=== PATIENT | female | born 1950 | race Caucasian/White ===

== ENCOUNTER 2016-06-07 21:25 | Emergency (ER) | payer OTHER ==
--- NOTE | ~2016-06-07 | CR63 ---
[facility] A Service of [facility] & [facility] RADIOLOGY TEXT RESULTS PATIENT: STEFANY BARR LOCATION: [facility] : 52 UNIT #: [id number] AGE: [address]: Polly Gray MD SEX: F ORDER DR: [id number] [facility] [address] [place], [place] [address] [id number] MR#: [id number] Acc #: [id number] NAME: STEFANY BARR : 1950 SEX: F STUDY DATE/TIME: 06/07/2016 18:16 UNIT: [facility] ROOM: STUDY DESCRIPTION: CR Chest 2 View Attending Physician: Polly Gray M.D. Ordering Physician: Ed Doctor [id number] [facility] Primary Care Physician: Kimi Cervantes M.D. MEDICAL IMAGING REPORT This report is preliminary unless electronic signature is present EXAM 2-view chest HISTORY Cough and congestion x4 days COMPARISON 06/07/2016 at 13:42 hours FINDINGS Portable view of the chest demonstrates no infiltrates or effusions. Heart size within normal limits. Middle mediastinal density consistent with a small hiatal hernia. No effusions. Overall no acute findings. Dictated by... Belinda Pastrana M.D. THIS IS AN ELECTRONICALLY VERIFIED REPORT Belinda Pastrana M.D. at 06/08/2016 10:05 AM RIKY/lolis TD: 06/08/2016 08:58 JOB #: [id number] MEDICAL IMAGING REPORT Page 1 of 1 COPY
--- NOTE | ~2016-06-07 | EKG ---
PATIENT: STEFANY BARR UNIT #: [id number] Ventricular Rate: 62 BPM Atrial Rate: 62 BPM P-R Interval: 130 ms QRS Duration: 84 ms Q-T Interval: 436 ms QTC Calculation(Bezet): 442 ms Calculated R [place]: 12 degrees Calculated T [place]: 24 degrees Diagnosis Line: Normal sinus rhythm Diagnosis Line: Minimal voltage criteria for LVH, may be normal Diagnosis Line: variant Diagnosis Line: Borderline ECG Baseline wander Diagnosis Line: When compared with ECG of 01-OCT-2014 00:46, Diagnosis Line: No significant change was found Diagnosis Line: Confirmed by ADRIEL LANCASTER MD ([id number]) on 06/08/2016 Diagnosis Line: 10:59:58 PM INTERPRETING MD: TONNY CARDONA
[2016-06-07 17:45] LABS: BASOPHIL% 0.5 % (0-2.5); EOSINOPHIL% 0.6 % (0.0-7.0); HEMATOCRIT 31.1 % (35.0-45.0); HEMOGLOBIN 9.4 gm/dL (12.0-16.0); LYMPHOCYTE% 37.8 % (17.0-45.0); MEAN CORPUSCULAR HEMOGLOBIN 19.3 PG (28-34); MEAN CORPUSCULAR HGB CONC 30.2 g/dL (30-36); MEAN PLATELET VOLUME 9.1 FL (6.5-11.5); MONOCYTE# 0.7 X10e3 (0-1.0); MONOCYTE% 12.3 % (3.0-12.0); NEUTROPHIL# 2.6 X10e3 (1.5-7.1); NEUTROPHIL% 48.8 % (40-75); PLATELET COUNT 148 X10e3 (140-420); RED BLOOD COUNT 4.87 X10e (3.90-5.30); RED CELL DISTRIBUTION WIDTH 16.8 % (11.0-15.5); WHITE BLOOD COUNT 5.3 X10e3 (4.0-10.5)
[2016-06-07 17:48] LABS: DIFF IND YES
[2016-06-07 18:09] LABS: ALBUMIN SERUM 3.3 g/dL (3.5-5.0); BILIRUBIN, DIRECT 0.1 mg/dL (0.0-0.2); BILIRUBIN,INDIRECT 0.4 mg/dL (0.0-0.9); BILIRUBIN,TOTAL 0.5 mg/dL (0.2-2.0); CALCIUM SERUM 8.3 mg/dL (8.4-10.2); CREATININE SERUM 0.5 mg/dL (0.6-1.4); GLOM FILT RATE Estimated 102.3 mL/min (>60); POTASSIUM 3.3 mmol/L (3.5-5.1); PROTEIN TOTAL SERUM 7.2 g/dL (6.0-8.3)
[2016-06-07 18:25] LABS: ELLIPTOCYTES PRESENT; PLATELET ESTIMATE NORMAL (NORMAL); POIKILOCYTOSIS SL
[2016-06-07 18:26] LABS: ANISOCYTOSIS SL; MICROCYTOSIS MOD; SPHEROCYTE SL
[2016-06-07 18:27] LABS: HYPOCHROMIA MOD
[~2016-06-07 21:25] MED LIST: ALBUTEROL17 GM INH; AMOXIL875 MG PO; CORTISPORI10 ML OTIC AU; DIET PILL; HCTZ PO; HUMULIN INSULIN SQ; HYDRALAZINE HCL25 MG PO; HYDROCHLOROTHIA25 MG PO; JANUVIA PO; JANUVIA25 MG PO; K-DUR20 ME1 PO; LANTUS100 UNITS/ SUBQ; MOBIC15 MG PO; NEXIUM PO; NOVOLOG100 U/ML; PHENERGAN DM1 ML PO; PREDNISONE PO; PROAIR HFA8.5 GM INH; SINGULAIR PO; VIBRAMYCIN100 M1 PO; ZOCOR PO; ZOFRAN ODT4 MG PO; ZYRTEC PO
[2016-06-07 21:47] LABS: INFLUENZA A NEG (NEG); INFLUENZA B POS (NEG)
== END 2016-06-07 23:24 | disposition home or self-care (01) ==
LOC: CED 21:25
PROVIDERS: Student in an Organized Health Care Education/Training Program
DX: J10.1 Influenza due to other identified influenza virus with other respiratory manifestations (principal); D64.9 Anemia, unspecified; E11.9 Type 2 diabetes mellitus without complications; J44.9 Chronic obstructive pulmonary disease, unspecified; I10 Essential (primary) hypertension; Z98.51 Tubal ligation status
CPT/HCPCS: 36415; 71020; 80048; 80076; 85025; 87804; 93005; 94640; 99283